=== PATIENT | female | born 1995 | race Caucasian/White ===

== ENCOUNTER 2016-09-15 07:49 | Emergency (ER) | payer OTHER ==
[2016-09-15 08:00] VITALS: BP 117/72
--- NOTE | 2016-09-15 08:15 | ED Physician Documentation ---
PD HPI UPPER EXT INJURY - Stated complaint Stated Complaint: R HAND INJURY - Chief complaint Chief Complaint: Ext Problem - History obtained from History obtained from: Patient - History of Present Illness Location: Right, Hand Type of injury: Blunt / blow Where injury occurred: Other (Gym) Timing - onset: How many minutes ago (About 30.) Worsened by: Moving, Palpating Associated symptoms: Swelling. No: Weakness, Numbness Similar symptoms before: Has not had sx before - Additonal information Additional information: The patient is an otherwise healthy 21-year-old female who was working out at the gym when one of the machines began to fall over. She tried to catch it from falling, and smashed her right hand between 2 pieces of gym equipment. She is right-hand dominant. She denies any other injuries. The incident occurred less than one half hour prior to arrival. Vaccinations are up to date. Review of Systems Respiratory: denies: Dyspnea GI: denies: Nausea, Vomiting Skin: reports: Abrasion (s) (right hand). denies: Rash Musculoskeletal: reports: Extremity pain (right hand) Neurologic: denies: Focal weakness, Numbness, Headache PD PAST MEDICAL HISTORY - Past Medical History Cardiovascular: None Respiratory: None Neuro: None Endocrine/Autoimmune: None - Past Surgical History Past Surgical History: No - Present Medications Home Medications: Ambulatory Orders Medication Instructions Recorded Confirmed No Known Home Medications [No 10/30/14 02/19/15 Known Home Medications] - Allergies Allergies/Adverse Reactions: Allergies Allergy/AdvReac Type Severity Reaction Status Date / Time No Known Drug Allergies Allergy Verified 10/30/14 09:54 - Social History Does the pt smoke?: No Smoking Status: Never smoker Does the pt drink ETOH?: No Does the pt have substance abuse?: No - Immunizations Immunizations are current?: Yes PD ED PE NORMAL - Vitals Vital signs reviewed: Yes (normal) - General General: Alert and oriented X 3, Well developed/nourished - HEENT HEENT: Atraumatic - Respiratory Respiratory: No respiratory distress - Derm Derm: No rash - Extremities Extremities: Other (Slight swelling, with mild tenderness to palpation over the dorsum of the right hand over the second and third metacarpals. There is a superficial abrasion on the radial aspect of the right wrist. There is no tenderness to palpation of the wrist. And she demonstrates full flexion and extension, as well as supination and pronation. Distal neurovascular is intact. ) - Neuro Neuro: Alert and oriented X 3, No motor deficit, No sensory deficit Results - Vitals Vitals: Oxygen O2 Source Room air - Rads (name of study) Right hand Radiology: Prelim report reviewed, EMP read contemporaneously, See rad report PD MEDICAL DECISION MAKING - ED course Complexity details: reviewed results, re-evaluated patient, considered differential, d/w patient, d/w family ED course: The patient's presentation is most consistent with contusion to the right hand. X-ray reveals no evidence of bony abnormality. I discussed with her and her male hardware assembler the results of the x-ray, expected course of healing, symptomatic treatment and outpatient follow-up, as well as potentially worrisome signs or symptoms that should prompt reevaluation in the emergency department. Departure - Departure Disposition: 01 Home, Self Care Clinical Impression: Contusion of right hand Qualifiers: Encounter type: initial encounter Qualified Code(s): S60.221A - Contusion of right hand, initial encounter Condition: Stable Instructions: ED Contusion Hand Follow-Up: FRANKIE Meraz [Provider Group] Comments: Apply ice pack to your right hand intermittently for the next 2 or 3 days. Keep your right hand elevated as much the time as possible. You can use ibuprofen, up to 800 mg 3 times daily for its anti-inflammatory effect. Let pain be your guide to activity level. Follow-up with your primary physician within 2 weeks. Call to schedule appointment. Return to the emergency department if you develop increasing pain, or otherwise worsening symptoms. Forms: Activity restrictions Discharge Date/Time: 09/15/16 09:05
--- NOTE | 2016-09-15 08:42 | XRAY Preliminary Report ---
Exam: XR Hand 3 View RT IMPRESSION: No fracture [facility] SITE ID: [id number]
--- NOTE | 2016-09-15 08:45 | XRAY Report ---
EXAM: RIGHT HAND RADIOGRAPHY EXAM DATE: 09/15/2016 08:27 AM. CLINICAL HISTORY: Crushing injury . COMPARISON: None. TECHNIQUE: 3 views. FINDINGS: Bones: Normal. No fractures or bone lesions. Joints: Normal. No subluxations. Soft Tissues: Normal. No soft tissue swelling. IMPRESSION: No fracture [facility] Referring Provider Line: [phone] SITE ID: [id number]
== END 2016-09-15 09:05 | disposition home or self-care (01) ==
LOC: ED 07:49
DX: S60.221A Contusion of right hand, initial encounter (principal); W23.1XXA Caught, crushed, jammed, or pinched between stationary objects, initial encounter; Y93.B1 Activity, exercise machines primarily for muscle strengthening; Y92.89 Other specified places as the place of occurrence of the external cause
CPT/HCPCS: 99282; 99283